=== PATIENT | female | born 1990 | race African-American/Black ===

== ENCOUNTER 2018-08-30 18:53 | Emergency (ER) | payer OTHER ==
[~2018-08-30] VITALS: Ht 162.6 cm; Wt 91.0 kg
[2018-08-30 19:02] VITALS: BP 128/84
== END 2018-08-30 22:53 | disposition left against medical advice (07) ==
LOC: ER 18:53
DX: Z53.21 Procedure and treatment not carried out due to patient leaving prior to being seen by health care provider (principal)